=== PATIENT | male | born 1960 | race Caucasian/White ===

== ENCOUNTER 2018-02-06 09:11 | Observation (INO) ==
[2018-02-06] MEDS ORDERED: *HR* FentaNYL (PF) 100 MCG/2 ML VIAL IVP ONE (09:35)
[2018-02-06] MEDS ORDERED: 0.9 % Sodium Chloride 1,000 ML IVC ONE (09:35)
[2018-02-06] MEDS ORDERED: Ondansetron 4 MG/2 ML VIAL IVP ONE (09:35)
--- NOTE | 2018-02-06 09:50 | Emergency Department Note ---
Disposition Clinical Impression: Ureteral calculus, left Disposition: Admitted As Inpatient Condition: Fair Referrals: Norah Gardner CNP [Primary Care Provider] - Forms: ED Satisfaction Letter, Work/School Release Time of Disposition: 12:20 General Adult HPI - General Chief complaint: ED Abdominal Pain Stated complaint: "Kidney stone" Time Seen by Provider: 02/06/18 09:22 Source: patient Mode of arrival: ambulatory Limitations: no limitations Nursing Notes Reviewed: Yes Vital Signs Reviewed: Yes - History of Present Illness HPI Narrative: Nontoxic-appearing 57-year-old male presents for evaluation of persistent left flank pain, nausea, and vomiting. One half weeks ago, he visited the emergency department at [facility]. He was admitted after findings of a large left ureterolithiasis. He was placed on IV antibiotics at that time. A lithotripsy was performed. Several days later, his urologist attempted to place a ureteral stent however the patient states "my urologist said the kidney was too swollen to insert the stent". Several days later, his urologist was able to insert a left-sided ureteral stent. 3 days ago, the stent was removed by his urologist. The patient complains of ongoing and persistent left flank pain ever since. He denies any hematuria, dysuria, frequency, or urgency. He denies any fever or chills. He denies any abdominal pain. There is no radiation or migration of this pain. Onset (ago): day(s) Location: other (Left flank) Radiation: flank Pain Scale: 10 Quality: aching Consistency: constant Improves with: nothing Worsens with: nothing Associated symptoms: Reports: nausea/vomiting. Denies: fever/chills - Related Data Home Medications Medication Instructions Recorded Confirmed Ciprofloxacin HCl [Cipro] 500 mg PO HS 02/06/18 02/06/18 HYDROcodone/Acet 10/325 mg [[place] 1 tab PO Q4HR PRN 02/06/18 02/06/18 10-325 mg] Loratadine [Allergy Relief] 10 mg PO DAILY 02/06/18 02/06/18 Losartan [Cozaar] 50 mg PO DAILY 02/06/18 02/06/18 SUMAtriptan Succinate [Imitrex] 100 mg PO Q2H PRN 02/06/18 02/06/18 Tamsulosin HCl [Flomax] 0.4 mg PO DAILY 02/06/18 02/06/18 Allergies Allergy/AdvReac Type Severity Reaction Status Date / Time No Known Allergies Allergy Verified 02/06/18 09:20 All systems ED: reviewed and negative except as stated. Review of Systems: As Per HPI Constitutional: Denies: fever, chills, weakness, weight change Eyes: Denies: eye pain, eye discharge, vision change ENT ED: Denies: ear pain, throat pain, dental pain, hearing loss, epistaxis, congestion, dysphagia Cardiovascular: Denies: chest pain, palpitations, dyspnea on exertion, edema, syncope Respiratory: Denies: cough, dyspnea, wheezes, hemoptysis, stridor Gastrointestinal: Reports: as per HPI, nausea, vomiting. Denies: abdominal pain , diarrhea, constipation, hematemesis, melena, hematochezia Genitourinary: Denies: urgency, dysuria, frequency, hematuria Musculoskeletal: Reports: as per HPI, other (Left flank pain). Denies: back pain, neck pain, arthralgia, myalgia Integumentary: Denies: rash, abrasion, lesions Neurological: Denies: headache, weakness, numbness, paresthesias, confusion, abnormal gait, vertigo Psychiatric: Denies: anxiety, depression, suicidal thoughts, homicidal thoughts , auditory hallucinations, visual hallucinations Endocrine: Denies: fatigue Hematological/Lymphatic: Denies: easy bleeding, easy bruising Allergic/Immunologic: Denies: facial swelling, urticaria Past Medical History - Past Medical History Attestation: Yes The following information was validated with the patient. Source: patient, nursing notes reviewed Medical history: Reports: hypertension, kidney stones Psychiatric history: Reports: no psych history - Social History Smoking Status: Never smoker Smokeless Tobacco Status: No Alcohol use: Reports: none Drug use: Reports: none Physical Exam - General Limitations: no limitations General appearance: alert - Head Head exam: atraumatic, normocephalic, normal inspection - Eye Eye exam: Present: normal appearance, PERRL, EOMI. Absent: nystagmus - ENT ENT exam: mucous membranes moist - Neck Neck exam: Present: normal inspection, full ROM, trachea midline - Chest Chest inspection: Present: normal inspection, symmetric chest wall rise - Respiratory Respiratory exam: Present: normal lung sounds bilaterally. Absent: respiratory distress, wheezes, stridor, accessory muscle use, prolonged expiratory phase - Cardiovascular Cardiovascular exam: Present: regular rate, normal rhythm, normal heart sounds - Abdominal Exam Abdominal exam: Present: soft, Non-Tender, normal bowel sounds - Extremities Exam Extremities exam: Present: normal inspection, full ROM. Absent: tenderness, pedal edema - Back Exam Back exam: Present: full ROM, CVA tenderness (L). Absent: CVA tenderness (R) - Neurological Exam Neurological exam: Present: alert, oriented X3 - Psychiatric Psychiatric exam: Present: normal affect, normal mood - Skin Skin exam: Present: warm, dry, intact, normal color. Absent: rash Course Course Narrative: I spoke with Dr. Neely, urologist ammonium hydroxide operator. Dr. Neely states that the patient will require surgical intervention for stone extraction. He recommends the patient be placed on IV Rocephin, held nothing by mouth after midnight, and admitted to the hospitalist service. He states that he will see the patient tomorrow morning for likely stone extraction tomorrow. 1220: I spoke with Dr. Haddad of the Hospital services agreed to accept the patient for medical management pending urology evaluation. Vital Signs Temperature 97.6 F 02/06/18 09:17 Pulse Rate 85 02/06/18 09:17 Respiratory Rate 18 02/06/18 09:17 Blood Pressure 178/117 02/06/18 09:17 O2 Sat by Pulse Oximetry 99 02/06/18 09:17 Temperature 97.6 F 02/06/18 09:39 Pulse Rate 79 02/06/18 09:39 Respiratory Rate 18 02/06/18 09:39 Blood Pressure 158/102 02/06/18 09:39 O2 Sat by Pulse Oximetry 100 02/06/18 09:39 Oxygen Delivery Oxygen Delivery Room Air Medical Decision Making - Medical Records Medical records reviewed: Yes I reviewed the patient's medical records. - Lab Data Lab results reviewed: Yes I reviewed the patient's lab results. Lab results narrative: Lab Results 02/06/18 02/06/18 02/06/18 Range/Units 09:30 09:38 09:38 WBC 14.8 H (4.3-11.1) K/mcL RBC 5.04 (4.19-5.50) M/mcL Hgb 15.9 (12.9-16.9) g/dL Hct 44.2 (37.5-50.1) % MCV 87.7 (83.0-100.0) fL MCH 31.5 (28.0-33.3) pg MCHC 36.0 H (31.6-35.5) g/dL RDW 12.5 (11.5-14.5) % Plt Count 235 (140-400) K/mcL MPV 9.4 (9.4-12.4) fL Immature Gran % 0.4 (0-4) % Seg Neutrophils % 86.3 % Lymphocytes % 4.8 % Monocytes % 7.7 % Eosinophils % 0.5 % Basophils % 0.3 % Neutrophils # 12.8 H (1.6-8.9) K/mcL Lymphocytes # 0.7 (0.6-4.6) K/mcL Monocytes # 1.1 (0.0-1.3) K/mcL Eosinophils # 0.1 (0.0-0.6) K/mcL Basophils # 0.1 (0.0-0.2) K/mcL Sodium 133 L (136-145) mEq/L Potassium 4.1 (3.5-5.1) mEq/L Chloride 100 (98-107) mEq/L Carbon Dioxide 28 (23-29) mEq/L BUN 18 (6-20) mg/dL Creatinine 1.61 H (0.70-1.30) mg/dL Est GFR ( Amer) 54 L (> 60) Est GFR (Non-Af Amer) 45 L (> 60) BUN/Creatinine Ratio 11 (6-26) Glucose 118 H (70-105) mg/dL Calculated Osmolality 279 L (280-300) Lactic Acid (0.5-2.2) mmol/L Calcium 9.6 (8.6-10.3) mg/dL Urine Color Yellow (Yellow) Urine Clarity Clear (Clear) Urine pH 6.0 (5.0-8.0) pH Units Ur Specific [place] 1.014 (1.010-1.025) Urine Protein Negative (Neg-Trace) mg/dL Urine Glucose (UA) Normal (Normal) mg/dL Urine Ketones Negative (Negative) mg/dL Urine Blood Moderate H (Negative) Urine Nitrite Negative (Negative) Urine Bilirubin Negative (Negative) Urine Urobilinogen Normal (Normal) mg/dL Ur Leukocyte Esterase Negative (Negative) Urine Microscopic RBC 0-3 (0-3) per hpf Urine Microscopic WBC 0-3 (0-3) per hpf Ur Squamous Epith Cells None Seen (None-Few) per lpf Urine Bacteria None Seen (None-Few) per hpf Hyaline Casts None Seen (None-Few) per lpf Ur Culture Indicated? NO (NO) 02/06/18 Range/Units 09:50 WBC (4.3-11.1) K/mcL RBC (4.19-5.50) M/mcL Hgb (12.9-16.9) g/dL Hct (37.5-50.1) % MCV (83.0-100.0) fL MCH (28.0-33.3) pg MCHC (31.6-35.5) g/dL RDW (11.5-14.5) % Plt Count (140-400) K/mcL MPV (9.4-12.4) fL Immature Gran % (0-4) % Seg Neutrophils % % Lymphocytes % % Monocytes % % Eosinophils % % Basophils % % Neutrophils # (1.6-8.9) K/mcL Lymphocytes # (0.6-4.6) K/mcL Monocytes # (0.0-1.3) K/mcL Eosinophils # (0.0-0.6) K/mcL Basophils # (0.0-0.2) K/mcL Sodium (136-145) mEq/L Potassium (3.5-5.1) mEq/L Chloride (98-107) mEq/L Carbon Dioxide (23-29) mEq/L BUN (6-20) mg/dL Creatinine (0.70-1.30) mg/dL Est GFR ( Amer) (> 60) Est GFR (Non-Af Amer) (> 60) BUN/Creatinine Ratio (6-26) Glucose (70-105) mg/dL Calculated Osmolality (280-300) Lactic Acid 1.0 (0.5-2.2) mmol/L Calcium (8.6-10.3) mg/dL Urine Color (Yellow) Urine Clarity (Clear) Urine pH (5.0-8.0) pH Units Ur Specific [place] (1.010-1.025) Urine Protein (Neg-Trace) mg/dL Urine Glucose (UA) (Normal) mg/dL Urine Ketones (Negative) mg/dL Urine Blood (Negative) Urine Nitrite (Negative) Urine Bilirubin (Negative) Urine Urobilinogen (Normal) mg/dL Ur Leukocyte Esterase (Negative) Urine Microscopic RBC (0-3) per hpf Urine Microscopic WBC (0-3) per hpf Ur Squamous Epith Cells (None-Few) per lpf Urine Bacteria (None-Few) per hpf Hyaline Casts (None-Few) per lpf Ur Culture Indicated? (NO) Result diagrams: 02/06/18 09:38 02/06/18 09:38 Lab Results 02/06/18 02/06/18 02/06/18 Range/Units 09:30 09:38 09:38 WBC 14.8 H (4.3-11.1) K/mcL RBC 5.04 (4.19-5.50) M/mcL Hgb 15.9 (12.9-16.9) g/dL Hct 44.2 (37.5-50.1) % MCV 87.7 (83.0-100.0) fL MCH 31.5 (28.0-33.3) pg MCHC 36.0 H (31.6-35.5) g/dL RDW 12.5 (11.5-14.5) % Plt Count 235 (140-400) K/mcL MPV 9.4 (9.4-12.4) fL Immature Gran % 0.4 (0-4) % Seg Neutrophils % 86.3 % Lymphocytes % 4.8 % Monocytes % 7.7 % Eosinophils % 0.5 % Basophils % 0.3 % Neutrophils # 12.8 H (1.6-8.9) K/mcL Lymphocytes # 0.7 (0.6-4.6) K/mcL Monocytes # 1.1 (0.0-1.3) K/mcL Eosinophils # 0.1 (0.0-0.6) K/mcL Basophils # 0.1 (0.0-0.2) K/mcL Sodium 133 L (136-145) mEq/L Potassium 4.1 (3.5-5.1) mEq/L Chloride 100 (98-107) mEq/L Carbon Dioxide 28 (23-29) mEq/L BUN 18 (6-20) mg/dL Creatinine 1.61 H (0.70-1.30) mg/dL Est GFR ( Amer) 54 L (> 60) Est GFR (Non-Af Amer) 45 L (> 60) BUN/Creatinine Ratio 11 (6-26) Glucose 118 H (70-105) mg/dL Calculated Osmolality 279 L (280-300) Lactic Acid (0.5-2.2) mmol/L Calcium 9.6 (8.6-10.3) mg/dL Urine Color Yellow (Yellow) Urine Clarity Clear (Clear) Urine pH 6.0 (5.0-8.0) pH Units Ur Specific [place] 1.014 (1.010-1.025) Urine Protein Negative (Neg-Trace) mg/dL Urine Glucose (UA) Normal (Normal) mg/dL Urine Ketones Negative (Negative) mg/dL Urine Blood Moderate H (Negative) Urine Nitrite Negative (Negative) Urine Bilirubin Negative (Negative) Urine Urobilinogen Normal (Normal) mg/dL Ur Leukocyte Esterase Negative (Negative) Urine Microscopic RBC 0-3 (0-3) per hpf Urine Microscopic WBC 0-3 (0-3) per hpf Ur Squamous Epith Cells None Seen (None-Few) per lpf Urine Bacteria None Seen (None-Few) per hpf Hyaline Casts None Seen (None-Few) per lpf Ur Culture Indicated? NO (NO) 02/06/18 Range/Units 09:50 WBC (4.3-11.1) K/mcL RBC (4.19-5.50) M/mcL Hgb (12.9-16.9) g/dL Hct (37.5-50.1) % MCV (83.0-100.0) fL MCH (28.0-33.3) pg MCHC (31.6-35.5) g/dL RDW (11.5-14.5) % Plt Count (140-400) K/mcL MPV (9.4-12.4) fL Immature Gran % (0-4) % Seg Neutrophils % % Lymphocytes % % Monocytes % % Eosinophils % % Basophils % % Neutrophils # (1.6-8.9) K/mcL Lymphocytes # (0.6-4.6) K/mcL Monocytes # (0.0-1.3) K/mcL Eosinophils # (0.0-0.6) K/mcL Basophils # (0.0-0.2) K/mcL Sodium (136-145) mEq/L Potassium (3.5-5.1) mEq/L Chloride (98-107) mEq/L Carbon Dioxide (23-29) mEq/L BUN (6-20) mg/dL Creatinine (0.70-1.30) mg/dL Est GFR ( Amer) (> 60) Est GFR (Non-Af Amer) (> 60) BUN/Creatinine Ratio (6-26) Glucose (70-105) mg/dL Calculated Osmolality (280-300) Lactic Acid 1.0 (0.5-2.2) mmol/L Calcium (8.6-10.3) mg/dL Urine Color (Yellow) Urine Clarity (Clear) Urine pH (5.0-8.0) pH Units Ur Specific [place] (1.010-1.025) Urine Protein (Neg-Trace) mg/dL Urine Glucose (UA) (Normal) mg/dL Urine Ketones (Negative) mg/dL Urine Blood (Negative) Urine Nitrite (Negative) Urine Bilirubin (Negative) Urine Urobilinogen (Normal) mg/dL Ur Leukocyte Esterase (Negative) Urine Microscopic RBC (0-3) per hpf Urine Microscopic WBC (0-3) per hpf Ur Squamous Epith Cells (None-Few) per lpf Urine Bacteria (None-Few) per hpf Hyaline Casts (None-Few) per lpf Ur Culture Indicated? (NO) - Radiology Data Radiology results reviewed: Yes I reviewed the patient's radiology results. Abdomen/Pelvis CT 02/06/18 09:35 IMPRESSION: 1. Distal left ureteral stones the largest measuring up to 3 mm near the UVJ with mild upstream hydroureteronephrosis. Nonobstructing left renal calculi are also noted. There is focal 9 mm area of wall thickening at the left UVJ which may be related to the normal intramuscular portion of the UVJ, however focal mass in this region cannot be excluded. Consider follow-up with cystoscopy. 2. Cholelithiasis. D/ / 02/06/2018 11:21:25 Vandana Ortiz MD / yuliya Interpreting Provider: Vandana Ortiz MD
[2018-02-06 10:00] LABS: Bilirubin,Urine Negative (Negative); Blood,Urine Moderate (Negative); Clarity,Urine Clear (Clear); Color,Urine Yellow (Yellow); Glucose,Urine (UA) Normal (Normal); Ketones,Urine Negative (Negative); Leukocyte Esterase,Urine Negative (Negative); Nitrite,Urine Negative (Negative); Protein,Urine Negative (Neg-Trace); Specific Gravity,Urine 1.014 (1.010-1.025); Urobilinogen,Urine Normal (Normal)
[2018-02-06 10:04] LABS: Basophils # 0.1 K/mcL (0.0-0.2); Basophils % 0.3 %; Eosinophils # 0.1 K/mcL (0.0-0.6); Eosinophils % 0.5 %; Hematocrit 44.2 % (37.5-50.1); Hemoglobin 15.9 g/dL (12.9-16.9); Immature Granulocytes % 0.4 % (0-4); Lymphocytes # 0.7 K/mcL (0.6-4.6); Lymphocytes % 4.8 %; Mean Corpuscular Hemoglobin 31.5 pg (28.0-33.3); Mean Corpuscular Volume 87.7 fL (83.0-100.0); Mean Platelet Volume 9.4 fL (9.4-12.4); Monocytes # 1.1 K/mcL (0.0-1.3); Monocytes % 7.7 %; Neutrophils # 12.8 K/mcL (1.6-8.9); Platelet Count 235 K/mcL (140-400); Red Blood Count 5.04 M/mcL (4.19-5.50); Red Cell Distribution Width 12.5 % (11.5-14.5); Segmented Neutrophils % 86.3 %
[2018-02-06 10:05] LABS: Bacteria,Urine None Seen per hpf (None-Few); Hyaline Casts,Urine None Seen per lpf (None-Few); RBC,Urine 0-3 per hpf (0-3); Squamous Epithelial Cell,Urine None Seen per lpf (None-Few); WBC,Urine 0-3 per hpf (0-3)
[2018-02-06 10:22] LABS: Calcium 9.6 mg/dL (8.6-10.3); Potassium 4.1 mEq/L (3.5-5.1)
--- NOTE | 2018-02-06 11:45 | Emergency Department Note ---
Disposition Clinical Impression: Kidney stone Disposition: Admitted As Inpatient Forms: ED Satisfaction Letter, Work/School Release General Adult HPI - General Chief complaint: ED Abdominal Pain Stated complaint: "Kidney stone" Time Seen by Provider: 02/06/18 09:22 Source: patient Mode of arrival: ambulatory Limitations: no limitations - History of Present Illness Location: other (Left flank) Pain Scale: 10 Quality: aching Improves with: nothing Worsens with: nothing Associated symptoms: Reports: nausea/vomiting. Denies: fever/chills - Related Data Allergies Allergy/AdvReac Type Severity Reaction Status Date / Time No Known Allergies Allergy Verified 02/06/18 09:20 Constitutional: Denies: fever, chills, weakness, weight change Eyes: Denies: eye pain, eye discharge, vision change ENT ED: Denies: ear pain, throat pain, dental pain, hearing loss, epistaxis, congestion, dysphagia Cardiovascular: Denies: chest pain, palpitations, dyspnea on exertion, edema, syncope Respiratory: Denies: cough, dyspnea, wheezes, hemoptysis, stridor Gastrointestinal: Reports: as per HPI, nausea, vomiting. Denies: abdominal pain , diarrhea, constipation, hematemesis, melena, hematochezia Genitourinary: Denies: urgency, dysuria, frequency, hematuria Musculoskeletal: Reports: as per HPI, other (Left flank pain). Denies: back pain, neck pain, arthralgia, myalgia Integumentary: Denies: rash, abrasion, lesions Neurological: Denies: headache, weakness, numbness, paresthesias, confusion, abnormal gait, vertigo Psychiatric: Denies: anxiety, depression, suicidal thoughts, homicidal thoughts , auditory hallucinations, visual hallucinations Endocrine: Denies: fatigue Hematological/Lymphatic: Denies: easy bleeding, easy bruising Allergic/Immunologic: Denies: facial swelling, urticaria Past Medical History - Past Medical History Medical history: Reports: hypertension, kidney stones Psychiatric history: Reports: no psych history - Social History Smoking Status: Never smoker Smokeless Tobacco Status: No Alcohol use: Reports: none Drug use: Reports: none Physical Exam - General Limitations: no limitations General appearance: alert Course Vital Signs Temperature 97.6 F 02/06/18 09:17 Pulse Rate 85 02/06/18 09:17 Respiratory Rate 18 02/06/18 09:17 Blood Pressure 178/117 02/06/18 09:17 O2 Sat by Pulse Oximetry 99 02/06/18 09:17 Temperature 97.6 F 02/06/18 09:39 Pulse Rate 79 02/06/18 09:39 Respiratory Rate 18 02/06/18 09:39 Blood Pressure 158/102 02/06/18 09:39 O2 Sat by Pulse Oximetry 100 02/06/18 09:39 Oxygen Delivery Oxygen Delivery Room Air Medical Decision Making - Lab Data Result diagrams: 02/06/18 09:38 02/06/18 09:38 Lab Results 02/06/18 02/06/18 02/06/18 Range/Units 09:30 09:38 09:38 WBC 14.8 H (4.3-11.1) K/mcL RBC 5.04 (4.19-5.50) M/mcL Hgb 15.9 (12.9-16.9) g/dL Hct 44.2 (37.5-50.1) % MCV 87.7 (83.0-100.0) fL MCH 31.5 (28.0-33.3) pg MCHC 36.0 H (31.6-35.5) g/dL RDW 12.5 (11.5-14.5) % Plt Count 235 (140-400) K/mcL MPV 9.4 (9.4-12.4) fL Immature Gran % 0.4 (0-4) % Seg Neutrophils % 86.3 % Lymphocytes % 4.8 % Monocytes % 7.7 % Eosinophils % 0.5 % Basophils % 0.3 % Neutrophils # 12.8 H (1.6-8.9) K/mcL Lymphocytes # 0.7 (0.6-4.6) K/mcL Monocytes # 1.1 (0.0-1.3) K/mcL Eosinophils # 0.1 (0.0-0.6) K/mcL Basophils # 0.1 (0.0-0.2) K/mcL Sodium 133 L (136-145) mEq/L Potassium 4.1 (3.5-5.1) mEq/L Chloride 100 (98-107) mEq/L Carbon Dioxide 28 (23-29) mEq/L BUN 18 (6-20) mg/dL Creatinine 1.61 H (0.70-1.30) mg/dL Est GFR ( Amer) 54 L (> 60) Est GFR (Non-Af Amer) 45 L (> 60) BUN/Creatinine Ratio 11 (6-26) Glucose 118 H (70-105) mg/dL Calculated Osmolality 279 L (280-300) Lactic Acid (0.5-2.2) mmol/L Calcium 9.6 (8.6-10.3) mg/dL Urine Color Yellow (Yellow) Urine Clarity Clear (Clear) Urine pH 6.0 (5.0-8.0) pH Units Ur Specific [place] 1.014 (1.010-1.025) Urine Protein Negative (Neg-Trace) mg/dL Urine Glucose (UA) Normal (Normal) mg/dL Urine Ketones Negative (Negative) mg/dL Urine Blood Moderate H (Negative) Urine Nitrite Negative (Negative) Urine Bilirubin Negative (Negative) Urine Urobilinogen Normal (Normal) mg/dL Ur Leukocyte Esterase Negative (Negative) Urine Microscopic RBC 0-3 (0-3) per hpf Urine Microscopic WBC 0-3 (0-3) per hpf Ur Squamous Epith Cells None Seen (None-Few) per lpf Urine Bacteria None Seen (None-Few) per hpf Hyaline Casts None Seen (None-Few) per lpf Ur Culture Indicated? NO (NO) 02/06/18 Range/Units 09:50 WBC (4.3-11.1) K/mcL RBC (4.19-5.50) M/mcL Hgb (12.9-16.9) g/dL Hct (37.5-50.1) % MCV (83.0-100.0) fL MCH (28.0-33.3) pg MCHC (31.6-35.5) g/dL RDW (11.5-14.5) % Plt Count (140-400) K/mcL MPV (9.4-12.4) fL Immature Gran % (0-4) % Seg Neutrophils % % Lymphocytes % % Monocytes % % Eosinophils % % Basophils % % Neutrophils # (1.6-8.9) K/mcL Lymphocytes # (0.6-4.6) K/mcL Monocytes # (0.0-1.3) K/mcL Eosinophils # (0.0-0.6) K/mcL Basophils # (0.0-0.2) K/mcL Sodium (136-145) mEq/L Potassium (3.5-5.1) mEq/L Chloride (98-107) mEq/L Carbon Dioxide (23-29) mEq/L BUN (6-20) mg/dL Creatinine (0.70-1.30) mg/dL Est GFR ( Amer) (> 60) Est GFR (Non-Af Amer) (> 60) BUN/Creatinine Ratio (6-26) Glucose (70-105) mg/dL Calculated Osmolality (280-300) Lactic Acid 1.0 (0.5-2.2) mmol/L Calcium (8.6-10.3) mg/dL Urine Color (Yellow) Urine Clarity (Clear) Urine pH (5.0-8.0) pH Units Ur Specific [place] (1.010-1.025) Urine Protein (Neg-Trace) mg/dL Urine Glucose (UA) (Normal) mg/dL Urine Ketones (Negative) mg/dL Urine Blood (Negative) Urine Nitrite (Negative) Urine Bilirubin (Negative) Urine Urobilinogen (Normal) mg/dL Ur Leukocyte Esterase (Negative) Urine Microscopic RBC (0-3) per hpf Urine Microscopic WBC (0-3) per hpf Ur Squamous Epith Cells (None-Few) per lpf Urine Bacteria (None-Few) per hpf Hyaline Casts (None-Few) per lpf Ur Culture Indicated? (NO) Attestation Statement - Attestation Attestation: I examined this patient and my medical decision-making was reviewed with the PA. I agree with the documented findings, disposition and treatment plan as described except to the extent set forth below. 57 year old male presents to the ED with complaints of kdiney stone pain and has [facility] and has been having repeated lithortripsy in addition to a recent stent placement and removal three days ago. PAtinet has an elevated CRN now and a WBC of 14 with a 3mm stone in left side UVJ in addition to a new focal mass. WE will consult with our urologist for assistance with dispo as radiologist is recommending a cystoscopy.
[2018-02-06] MEDS ORDERED: cefTRIAXone 1,000 MG in 0.9 % Sodium Chloride Mini Bag 100 ML IVPB ONE (11:56)
--- NOTE | 2018-02-06 12:10 | Urology - Consult Note ---
Date of Encounter: 02/06/18 Time of Encounter: 12:05 - Assessment and Plan (1) Ureteral calculus, left Current Visit: Yes Status: Acute Assessment and plan: Patient is a 57 year old male who presents with multiple obstructing distal left ureteral stones and left renal stones, confirmed by CT abdomen and pelvis. Patient's vital signs are stable, and he is afebrile. WBC count 14.8. Patient was counseled on risks and benefits of surgery. Patient and his verbalize understanding, consent has been signed, and he is prepared to undergo a left ureteroscopic stone extraction with holmium laser, basket retrieval, and left ureteral stent placement. Patient will remain NPO and be admitted to hospitalist services. Urology CN:HPI Consult date: 02/06/18 Reason for consult Urology: Other (left ureteral stone) History of present illness: Patient is a 57 year old male who presents with left flank pain and history of left renal stones. [place] [facility] one [place] ago for left renal stones. Patient underwent ESWL and left ureteral stent placement in two separate procedures 9 days ago. Patient states pain has persisted since stent placement and acutely worsened overnight. Patient has not eaten or drank anything since 2200 last night. Patient admits to gross hematuria , left flank pain, urinary hesitancy. Patient denies fever, chills, dysuria. Patient reports this is his first renal stone, but he has a positive family history of renal stones through his brother that sees Dr. Laboy. Patient attempted to [place] [facility] told he is out of town. Patient underwent CT scan confirming distal ureteral stones. Past Med Surg Social Fam HX - Past Medical History Medical history: hypertension, kidney stones Psychiatric history: no psych history - Social History Smoking Status: Never smoker Smokeless Tobacco Status: No Alcohol use: none Drug use: none Medications and Allergies 3 Allergy/AdvReac Type Severity Reaction Status Date / Time No Known Allergies Allergy Verified 02/06/18 09:20 Review of Systems - Constitutional no chills, no fatigue, no fever(s) - EENT Nose, mouth and throat: no dizziness, no headache(s) - Cardiovascular no chest pain, no diaphoresis, no dyspnea - Respiratory no cough, no dyspnea - Gastrointestinal abdominal pain, nausea, no vomiting - Genitourinary hematuria, urinary hesitancy, no change in urinary stream, no dysuria, no genital pain, no urinary frequency, no urinary urgency - Musculoskeletal back pain, no muscle weakness, no numbness - Integumentary no erythema, no rash, no swelling - Neurological no confusion, no sensory deficit, no syncope, no weakness - Psychiatric no anxiety, no confusion Exam Initial Vital Signs Temp Pulse Resp BP Pulse Ox 97.6 F 85 18 178/117 99 02/06/18 09:17 02/06/18 09:17 02/06/18 09:17 02/06/18 09:17 02/06/18 09:17 Urology Results - Labs 02/06/18 09:38 02/06/18 09:38 Abnormal lab results WBC 14.8 K/mcL (4.3-11.1) H 02/06/18 09:38 MCHC 36.0 g/dL (31.6-35.5) H 02/06/18 09:38 Neutrophils # 12.8 K/mcL (1.6-8.9) H 02/06/18 09:38 Sodium 133 mEq/L (136-145) L 02/06/18 09:38 Creatinine 1.61 mg/dL (0.70-1.30) H 02/06/18 09:38 Est GFR ( Amer) 54 (> 60) L 02/06/18 09:38 Est GFR (Non-Af Amer) 45 (> 60) L 02/06/18 09:38 Glucose 118 mg/dL (70-105) H 02/06/18 09:38 Calculated Osmolality 279 (280-300) L 02/06/18 09:38 Urine Blood Moderate (Negative) H 02/06/18 09:30 Diabetes panel 02/06/18 Range/Units 09:38 Sodium 133 L (136-145) mEq/L Potassium 4.1 (3.5-5.1) mEq/L Chloride 100 (98-107) mEq/L Carbon Dioxide 28 (23-29) mEq/L BUN 18 (6-20) mg/dL Creatinine 1.61 H (0.70-1.30) mg/dL Glucose 118 H (70-105) mg/dL Calcium 9.6 (8.6-10.3) mg/dL Calcium panel 02/06/18 Range/Units 09:38 Calcium 9.6 (8.6-10.3) mg/dL Pituitary panel 02/06/18 Range/Units 09:38 Sodium 133 L (136-145) mEq/L Potassium 4.1 (3.5-5.1) mEq/L Chloride 100 (98-107) mEq/L Carbon Dioxide 28 (23-29) mEq/L BUN 18 (6-20) mg/dL Creatinine 1.61 H (0.70-1.30) mg/dL Glucose 118 H (70-105) mg/dL Calcium 9.6 (8.6-10.3) mg/dL Adrenal panel 02/06/18 Range/Units 09:38 Sodium 133 L (136-145) mEq/L Potassium 4.1 (3.5-5.1) mEq/L Chloride 100 (98-107) mEq/L Carbon Dioxide 28 (23-29) mEq/L BUN 18 (6-20) mg/dL Creatinine 1.61 H (0.70-1.30) mg/dL Glucose 118 H (70-105) mg/dL Calcium 9.6 (8.6-10.3) mg/dL All other labs normal. - Imaging CT scan - abdomen: report reviewed, image reviewed CT scan - pelvis: report reviewed, image reviewed Consult Discharge Plan - Plan Referrals: Norah Gardner CNP [Primary Care Provider] -
--- NOTE | 2018-02-06 13:56 | Internal Med History&Physical ---
Date of Encounter: 02/06/18 Time of Encounter: 13:53 Internal Medicine - H&P: HPI Chief complaint: Left sided pain Admitted From: Home History of present illness: Mr. Lu is a 57 year old male with PMH hypertension and recurrent kidney stones presented to [facility] on 02/06/2018 with complaints of left flank pain. He was found to have obstructing ureteral stone and was placed in observation status for further workup and treatment and urology consultation. Information obtained from chart review and patient report. Patient says he has been dealing with kidney stones for the past 2-3 weeks. Was seen at outside hospital where he had lithotripsy done but now with recurrent and worsening left flank plain. Has nausea as well. IV fentanyl and ED helped with pain. He does have some left CVA tenderness. No dysuria. Past Med Surg Social Fam HX - Past Medical History Medical history: hypertension, kidney stones Psychiatric history: no psych history - Past Surgical History Surgical History: non-contributory - Social History Smoking Status: Never smoker Smokeless Tobacco Status: No Alcohol use: none Drug use: none - Additional Family History Additional family history: Family history reviewed and noncontributory per patient Internal Medicine - H&P: Meds Ciprofloxacin HCl [Cipro] 500 mg PO HS 02/06/18 [History] HYDROcodone/Acet 10/325 mg [[place] 10-325 mg] 1 tab PO Q4HR PRN 02/06/18 [History ] Loratadine [Allergy Relief] 10 mg PO DAILY 02/06/18 [History] Losartan [Cozaar] 50 mg PO DAILY 02/06/18 [History] SUMAtriptan Succinate [Imitrex] 100 mg PO Q2H PRN 02/06/18 [History] Tamsulosin HCl [Flomax] 0.4 mg PO DAILY 02/06/18 [History] 3 Allergy/AdvReac Type Severity Reaction Status Date / Time No Known Allergies Allergy Verified 02/06/18 09:20 All Systems PM: A 10-system review of systems was performed and is negative for pertinent findings except as documented above in the HPI. - Constitutional Constitutional: no chills, no fever(s), no night sweats - EENT Eyes: no change in vision, no discharge, no pain, no photophobia Ears: no ear discharge, no ear pain, no tinnitus Nose, mouth and throat: no dysphagia, no nasal discharge, no neck pain, no sore throat - Cardiovascular Cardiovascular ROS IM: no chest pain, no diaphoresis, no dyspnea, no lightheadedness, no palpitations, no syncope - Respiratory Respiratory: no cough, no dyspnea, no wheezing, no excessive phlegm production - Gastrointestinal Gastrointestinal: no abdominal pain, no diarrhea, no hematemesis, no hematochezia, no melena, no nausea, no vomiting - Genitourinary Genitourinary ROS male: flank pain - Musculoskeletal Musculoskeletal ROS IM: no numbness, no tingling - Integumentary Integumentary IM: no rash, no unusual bruising - Neurological Neurological ROS: no confusion, no convulsions, no focal weakness, no numbness, no tingling, no tremor(s) - Hematologic/Lymphatic Hematologic/Lymphatic: no easy bruising - Constitutional Vitals: Temp Pulse Resp BP Pulse Ox 97.6 F 80 16 137/90 100 02/06/18 09:39 02/06/18 13:08 02/06/18 13:08 02/06/18 13:08 02/06/18 13:08 General appearance: Present: A&O X 3, no acute distress Exam: . - Head Head exam: Present: atraumatic, normocephalic - Eye Eye exam: Present: PERRL, conjuntiva pink, sclera anicteric Pupils: Present: PERRL - Neck Neck exam general surgery: Present: supple, trachea midline. Absent: lymphadenopathy - Respiratory Respiratory exam: Present: CTAB. Absent: accessory muscle use, rales, rhonchi, wheezes - Cardiovascular Cardiovascular exam: Present: RRR, +S1, +S2. Absent: diastolic murmur, gallop, rubs, systolic murmur - GI/Abdominal GI/Abdominal exam: Present: normal bowel sounds, soft, no peritoneal signs. Absent: distended, tenderness - Additional comments: + Left CVA tenderness - Extremities Exam Extremities exam: Present: warm, radial pulses palpable and symmetrical. Absent : calf tenderness, cyanotic, pedal edema - Neurological Exam Neurological exam: Present: CN II-XII intact, oriented X3, no focal deficits. Absent: pronater drift, facial droop, speech deficit - Skin Skin exam: Present: dry, intact Internal Med - H&P Results - Labs CBC & Chem 7: 02/06/18 09:38 02/06/18 09:38 - Assessment and plan (1) Ureteral calculus, left Current Visit: Yes Status: Acute Assessment and plan: presented with left sided flank pain. ABD CT showed left ureteral stones near the UVJ with upstream hydroureternephrosis. Evaluated by urology in ED who is planning left ureteroscopic stone extraction with ureteral stent placement. Keep NPO, cont IV fluids, IV ceftriaxone and pain control. (2) Acute on chronic kidney failure Current Visit: Yes Status: Acute Assessment and plan: Cr 1.6 on arrival which appears to be worse than baseline. In the setting of obstructive renal calculi with combined use of ARB. Holding home ARB. Continue IV fluids. Avoid nephrotoxic agents as possible. Monitor repeat renal function. Qualifiers: Chronic kidney disease stage: stage 3 (moderate) Qualified Code(s): N17.9 - Acute kidney failure, unspecified; N18.3 - Chronic kidney disease, stage 3 ( moderate) (3) HTN (hypertension) Current Visit: Yes Status: Acute Assessment and plan: per hx. Holding home ARB with acute on chronic renal failure. BP mildly elevated which is possibly secondary to acute pain. Add PRN hydralazine. Monitor BP and titrate PRN Qualifiers: Hypertension type: essential hypertension Qualified Code(s): I10 - Essential (primary) hypertension (4) DVT prophylaxis Current Visit: Yes Status: Acute Assessment and plan: SCD - Time Spent With Patient Total time spent is greater than 50% in coordination of care (as documented) at patient's floor/unit and/or counseling patient:
[2018-02-06] MEDS ORDERED: Naloxone 0.4 MG/ML INJ IVP PRN ×2 (14:04→18:33)
[2018-02-06] MEDS ORDERED: 0.9 % Sodium Chloride 1,000 ML IVC SCH ×2 (14:15→18:33)
--- NOTE | 2018-02-06 14:22 | Anesthesia Evaluation PreOp ---
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: Denies Any Significant HX Other Medical History: Renal (ACUTE ON CHRONIC RENAL FAILURE, ESWL, STENT REMOVED, MULTIPLE LEFT URETERIC STONES, N/V SINCE THIS AM) Anesthesia History: No Prior Anesthetic Complications, Past Anesthesia Alcohol Use: none Drug use: none Medications and Allergies Ciprofloxacin HCl [Cipro] 500 mg PO HS 02/06/18 [History] HYDROcodone/Acet 10/325 mg [[place] 10-325 mg] 1 tab PO Q4HR PRN 02/06/18 [History ] Loratadine [Allergy Relief] 10 mg PO DAILY 02/06/18 [History] Losartan [Cozaar] 50 mg PO DAILY 02/06/18 [History] SUMAtriptan Succinate [Imitrex] 100 mg PO Q2H PRN 02/06/18 [History] Tamsulosin HCl [Flomax] 0.4 mg PO DAILY 02/06/18 [History] 3 Allergy/AdvReac Type Severity Reaction Status Date / Time No Known Allergies Allergy Verified 02/06/18 09:20 - Meds/Allergy Pre-op Review Medications Reviewed: Yes Allergies Reviewed: Yes Beta Blockers on Current Med List: No Anesthesia Results - Labs 02/06/18 09:38 02/06/18 09:38 Est GFR (Non-Af Amer) 45 (> 60) L 02/06/18 09:38 Lactic Acid 1.0 mmol/L (0.5-2.2) 02/06/18 09:50 Calcium 9.6 mg/dL (8.6-10.3) 02/06/18 09:38 Anesthesia Exam Vital Signs/O2 Sat, Most Current Temp Pulse Resp BP Pulse Ox 97.5 F L 80 18 147/99 97 02/06/18 13:55 02/06/18 13:55 02/06/18 13:55 02/06/18 13:55 02/06/18 13:55 Height 1.7 m Weight 84.822 kg BMI 29 NPO (# of Hours): 8 - HEENT Mallampati: III Teeth: Normal Oral Opening: Greater than 3 - Cardiac Rhythm: Regular - Pulmonary Breath Sounds: bilateral Clear Respiratory Effort: Symmetrical Anesthesia Assess/Plan ASA Score: 2, E Modified Ricky Scale for Level of Consciousness: Cooperative, oriented, and tranquil Anesthetic Plan: General Monitoring Plan: Standard Monitors Recovery Plan: PACU Anes Supervising Prov Stmt: Patient informed and consented. Risks, benefits, and alternatives discussed. Patient wishes to proceed.
[2018-02-06] MEDS ORDERED: Ondansetron 4 MG/2 ML VIAL IVP PRN ×2 (14:43→18:33)
[2018-02-06] MEDS ORDERED: Ondansetron 4 MG/2 ML VIAL ONE ×2 (14:45→16:18)
[2018-02-06] MEDS ORDERED: *HR* OxyCODONE Immed Rel 5 MG TABLET PO SCH (16:00)
[2018-02-06] MEDS ORDERED: Lidocaine -MPF 4% 5 ML AMPUL ONE (16:18)
[2018-02-06] MEDS ORDERED: *HR* FentaNYL (PF) 100 MCG/2 ML VIAL ONE ×2 (16:18→17:12)
[2018-02-06] MEDS ORDERED: *HR* Midazolam HCl 2 MG/2 ML VIAL ONE (16:18)
[2018-02-06] MEDS ORDERED: *HR* Propofol 200 MG/20 ML VIAL IVP ONE (16:18)
[2018-02-06] MEDS ORDERED: Dexamethasone 4 MG/ML VIAL ONE (16:18)
[2018-02-06] MEDS ORDERED: Lidocaine -MPF 2% 2 ML VIAL ONE (16:18)
[2018-02-06] MEDS ORDERED: *HR* Succinylcholine 200 MG/10 ML VIAL IVP ONE (16:18)
[2018-02-06] MEDS ORDERED: Metoclopramide 10 MG/2 ML VIAL ONE (16:19)
[2018-02-06] MEDS ORDERED: Famotidine 20 MG/2 ML VIAL ONE (16:24)
[2018-02-06] MEDS ORDERED: Acetaminophen IV 1,000 MG/100 ML INFUS..BTL ONE (16:24)
[2018-02-06] MEDS ORDERED: *HR* HYDROmorphone (PF) 1 MG/ML SYRINGE IVP PRN (16:31)
[2018-02-06] MEDS ORDERED: *HR* Promethazine 25 MG/ML VIAL IVP PRN (16:31)
[2018-02-06] MEDS ORDERED: Isovue-300 50 ML VIAL IVP ONE (16:37)
--- NOTE | 2018-02-06 16:48 | Operative Note ---
Date of procedure: 02/06/18 Pre-op diagnosis: left distal ureteral stones Post-op diagnosis: same Procedure: left ureteroscopic stone extraction left JJ stent. Anesthesia: GETA Surgeon: Jean Pierre Neely Was there an program services assistant present: No Estimated blood loss (cc): 0 Specimen: stone Condition: stable Disposition: PACU Procedure in Detail: PROCEDURE IN DETAIL: Patient was taken back to the operating room, positioned supine on the operating table. Anesthesia was applied without complication. They were moved into dorsal lithotomy. Careful attention was maintained to cushion all pressure points for patient's safety. They were prepped and draped in sterile fashion. Time-out was performed with the proper patient and procedure. A 21-Lithuanian rigid cystoscope was inserted into the bladder without difficulty. Systematic examination of bladder revealed no abnormalities. The left ureteral orifice was cannulated using a 5-Lithuanian ureteral Catheter and a zip wire was placed through the 5-Lithuanian and confirmed in the renal pelvis with fluoroscopy. Significant debris filled urine rushed from the ureteral orifice after the zip wire was passed. A semi-rigid ureteroscope was carefully inserted into the bladder and guided into the ureteral oriface. At that point , 2 stones were encountered and I basketed each out of the ureter with a 1.9 tipless basket. All stone in the ureter was removed. A 4.8 x 26 ureteral stent was placed over the zip wire under fluoroscopy without complication. The bladder was drained along with the stone fragments. They were collected and sent for stone analysis. The string was left attached to the stent and secured to the patient for easy removal in approximately 72 hours. I elected not to proceed into his renal pelvis to remove the nonobstructing 3 mm stone because of his acute illness.
[2018-02-06] MEDS ORDERED: Scopolamine Patch 1.5 MG PATCH.TD72 ONE (17:06)
--- NOTE | 2018-02-06 18:27 | Anesthesia Evaluation Post Op ---
Date of Encounter: 02/06/18 Time of Encounter: 18:00 - Vital Signs Vital Signs: Vital Signs Temp Pulse Resp BP Pulse Ox 02/06/18 18:06 82 14 137/86 98 02/06/18 17:50 99.4 F 84 14 141/90 97 02/06/18 17:40 81 14 136/85 96 02/06/18 17:30 74 16 113/80 95 02/06/18 17:20 99.6 F 83 16 108/73 93 02/06/18 13:55 97.5 F L 80 18 147/99 97 02/06/18 13:08 80 16 137/90 100 02/06/18 12:39 78 15 152/109 98 02/06/18 09:39 97.6 F 79 18 158/102 100 02/06/18 09:17 97.6 F 85 18 178/117 99 Intake and Output 02/06/18 02/06/18 02/06/18 07:59 15:59 23:59 Intake Total 1100 / 1100 Output Total 0 / 0 5 / 5 Balance 1100 / 1100 -5 / -5 Intake: IV Fluids 1100 / 1100 0.9 % Sodium Chloride 1,000 ML 1000 / 1000 @ 999 mls/hr IVC .Q1H1M ONE Rx# :[id number] Rocephin 1,000 MG In 0.9 % 100 / 100 Sodium Chloride (Mini-Bag +) 100 ML @ 200 mls/hr IVPB ONCE ONE Rx#:[id number] Output: Urine 0 / 0 Estimated Blood Loss 5 / 5 Other: Meal NPO DINNER Weight 84.368 kg Patient Weight 02/06/18 23:59 Weight 84.368 kg - Lungs Lungs: Clear Ascult./Percussion - Airway Airway: Non-obstructed - Cardiovascular Regular Rate - Mental Status Mental Status: Alert & Oriented, Answers Appropriately - Pain Pain Scale: 2 Pain Scale used: Garcia-Recinos (Faces) - Nausea Vomiting Nausea Vomiting: Present (improved from Pre-OP baseline) - Hydration Hydration: Ice chips, Has not voided - Discharge PostOp Status: Transfer Patient to floor Anes Supervising Prov Stmt: Pt seen/evaluated, VSS And has met criteria for discharge to floor. - MD Alex
[2018-02-06] MEDS: *HR* OxyCODONE Immed Rel 5 MG TABLET PO SCH (20:25)
[2018-02-07] MEDS: *HR* OxyCODONE Immed Rel 5 MG TABLET PO SCH ×2 (01:36→05:36)
[2018-02-07 05:10] LABS: Hematocrit 40.1 % (37.5-50.1); Mean Corpuscular HGB Conc 35.4 g/dL (31.6-35.5); Mean Corpuscular Hemoglobin 31.3 pg (28.0-33.3); Mean Corpuscular Volume 88.3 fL (83.0-100.0); Mean Platelet Volume 9.5 fL (9.4-12.4); Platelet Count 210 K/mcL (140-400); Red Blood Count 4.54 M/mcL (4.19-5.50); Red Cell Distribution Width 12.6 % (11.5-14.5)
[2018-02-07 05:13] LABS: Hemoglobin 14.2 g/dL (12.9-16.9)
[2018-02-07 05:22] LABS: BUN/Creatinine Ratio 13 (6-26); Blood Urea Nitrogen 18 mg/dL (6-20); Calcium 8.8 mg/dL (8.6-10.3); Carbon Dioxide 24 mEq/L (23-29); Chloride 109 mEq/L (98-107); Glucose 127 mg/dL (70-105); Osmolality,Calculated 291 (280-300); Potassium 4.2 mEq/L (3.5-5.1); Sodium 139 mEq/L (136-145); eGFR For Non-African Americans 51 (> 60)
[2018-02-07] MEDS ORDERED: *HR* OxyCODONE Immed Rel 5 MG TABLET PO PRN (07:08)
--- NOTE | 2018-02-07 08:17 | Urology Progress Note ---
Date of Encounter: 02/07/18 Time of Encounter: 08:14 - Assessment and Plan (1) Ureteral calculus, left Current Visit: Yes Status: Resolved Assessment and plan: Patient feels much better. Labs have improved. Creatinine still mildly elevated. Should resolve with time. I instructed patient that he should leave the stent in until at least Friday. Expect stent discomfort including urgency, frequency, burning on urination. He can either remove the stent at home by pulling on the string until the entire stent is removed or contact our office to come in for removal. Office contact information provided. I recommend 7 days of antibiotics because of questionable UTI. Bactrim or Keflex would be appropriate Okay to discharge per urology standpoint Progress Note Subjective: feels better Narrative: pt states no pain. nausea resolved. Objective Initial Vital Signs Temp Pulse Resp BP Pulse Ox 97.6 F 85 18 178/117 99 02/06/18 09:17 02/06/18 09:17 02/06/18 09:17 02/06/18 09:17 02/06/18 09:17 - General physical appearance Present: no distress - Labs 02/07/18 04:46 02/07/18 04:46 Diabetes panel 02/07/18 Range/Units 04:46 Sodium 139 (136-145) mEq/L Potassium 4.2 (3.5-5.1) mEq/L Chloride 109 H (98-107) mEq/L Carbon Dioxide 24 (23-29) mEq/L BUN 18 (6-20) mg/dL Creatinine 1.43 H (0.70-1.30) mg/dL Glucose 127 H (70-105) mg/dL Calcium 8.8 (8.6-10.3) mg/dL Calcium panel 02/07/18 Range/Units 04:46 Calcium 8.8 (8.6-10.3) mg/dL Pituitary panel 02/07/18 Range/Units 04:46 Sodium 139 (136-145) mEq/L Potassium 4.2 (3.5-5.1) mEq/L Chloride 109 H (98-107) mEq/L Carbon Dioxide 24 (23-29) mEq/L BUN 18 (6-20) mg/dL Creatinine 1.43 H (0.70-1.30) mg/dL Glucose 127 H (70-105) mg/dL Calcium 8.8 (8.6-10.3) mg/dL Adrenal panel 02/07/18 Range/Units 04:46 Sodium 139 (136-145) mEq/L Potassium 4.2 (3.5-5.1) mEq/L Chloride 109 H (98-107) mEq/L Carbon Dioxide 24 (23-29) mEq/L BUN 18 (6-20) mg/dL Creatinine 1.43 H (0.70-1.30) mg/dL Glucose 127 H (70-105) mg/dL Calcium 8.8 (8.6-10.3) mg/dL Consult Discharge Plan - Plan Referrals: Norah Gardner CNP [Primary Care Provider] - Jean Pierre Neely MD [Partnered Physician] -
--- NOTE | 2018-02-07 08:34 | Discharge Summary ---
- NOTES TO OUTPATIENT PROVIDER Notes to Outpatient Provider: elevatedrenal fx 2/2 lt ureteral calculi; improving s/p stent. f/u renal labs Orders not resulted at time of discharge: Pending orders 02/06/18 17:24 Surgical Pathology [PTH] Stat Date of Encounter: 02/07/18 Time of Encounter: 08:32 - Discharge Diagnosis (1) Ureteral calculus, left Priority: Primary Status: Resolved (2) HTN (hypertension) Priority: Secondary Status: Acute Qualifiers: Hypertension type: essential hypertension Qualified Code(s): I10 - Essential (primary) hypertension (3) Acute on chronic kidney failure Priority: Secondary Status: Acute Assessment and Plan: improving s/p renal stent; remains elevated but i expect it to improve and return to baseline fx. Qualifiers: Chronic kidney disease stage: stage 3 (moderate) Qualified Code(s): N17.9 - Acute kidney failure, unspecified; N18.3 - Chronic kidney disease, stage 3 ( moderate) (4) DVT prophylaxis Priority: Secondary Status: Acute Hospital course: Mr. Lu is a 57 year old male with left ureteral calculi. Basket retrieval completed with removal of ureteral calculus. Ureteral stent in place. To have removed at urology office during follow-up. Uneventful hospital course. Patient progressing back to baseline. WBC is down trending on day of discharge. Hemodynamically stable and without fevers. He will be sent home with a 7 day course of Keflex. Denies any further questions and verbalized understanding of plan of care. Instructed to return to the ED she began to develop fever, chills, nausea, vomiting, back pain, urinary difficulty. Patient verbalized understanding. Discharge discussed with: patient, nurse - Time Spent with Patient Total time spent providing and/or coordinating discharge services: Less than 30 minutes - Discharge Medications Prescriptions: cephALEXin [Keflex] 500 mg PO BID 7 Days #14 capsule Home Medications: HYDROcodone/Acet 10/325 mg [[place] 10-325 mg] 1 tab PO Q4HR PRN 02/06/18 [History ] Loratadine [Allergy Relief] 10 mg PO DAILY 02/06/18 [History] Losartan [Cozaar] 50 mg PO DAILY 02/06/18 [History] SUMAtriptan Succinate [Imitrex] 100 mg PO Q2H PRN 02/06/18 [History] Tamsulosin HCl [Flomax] 0.4 mg PO DAILY 02/06/18 [History] cephALEXin [Keflex] 500 mg PO BID 7 Days #14 capsule 02/07/18 [Rx] Allergies/Adverse Reactions: 3 Allergy/AdvReac Type Severity Reaction Status Date / Time No Known Allergies Allergy Verified 02/06/18 09:20 Date of admission: 02/06/18 12:27 Primary care physician: Norah Gardner CNP Discharging clinician: Jian Chan Anticipated date of discharge: 02/07/18 - Constitutional Vitals: Temp Pulse Resp BP Pulse Ox 98.8 F 87 16 132/80 97 02/07/18 07:24 02/07/18 07:24 02/07/18 07:24 02/07/18 07:24 02/07/18 07:24 General appearance: Present: A&O X 3, no acute distress Exam: . - Head Head exam: Present: atraumatic, normocephalic - Eye Eye exam: Present: PERRL, conjuntiva pink, sclera anicteric Pupils: Present: PERRL - Neck Neck exam general surgery: Present: supple, trachea midline. Absent: lymphadenopathy - Respiratory Respiratory exam: Present: CTAB. Absent: accessory muscle use, rales, rhonchi, wheezes - Cardiovascular Cardiovascular exam: Present: RRR, +S1, +S2. Absent: diastolic murmur, gallop, rubs, systolic murmur - GI/Abdominal GI/Abdominal exam: Present: normal bowel sounds, soft, no peritoneal signs. Absent: distended, tenderness - Extremities Exam Extremities exam: Present: warm, radial pulses palpable and symmetrical. Absent : calf tenderness, cyanotic, pedal edema - Neurological Exam Neurological exam: Present: CN II-XII intact, oriented X3, no focal deficits. Absent: pronater drift, facial droop, speech deficit - Skin Skin exam: Present: dry, intact - Patient Status Disposition: Home, Self-Care Condition: Fair Functional capacity at discharge: independent ambulation Overall status at discharge: patient is progressing back to baseline - Discharge Instructions Instructions: Chronic Hypertension (DC) Follow Up With: Norah Gardner CNP [Primary Care Provider] - Jean Pierre Neely MD [Partnered Physician] - - Diet and Activity Activity: increase activity as tolerated, resume usual activities as tolerated Diet: advance to your usual diet
[2018-02-07] MEDS ORDERED: cefTRIAXone 1,000 MG in Water for inj. (sterile) 20 ML 10 ML IVP SCH (09:00)
[2018-02-07 10:42] VITALS: BP 131/86
[2018-02-11 10:15] LABS: Calculi Mass 7 mg
== END 2018-02-07 12:49 | disposition home or self-care (01) ==
LOC: EMEROOARM 09:11 → 3ANU 09:11
PROVIDERS: ADMIT Internal Medicine; ATTEND Internal Medicine

== ENCOUNTER 2018-05-18 04:36 | Observation (INO) ==
--- NOTE | 2018-05-18 04:55 | Emergency Department Note ---
Disposition Clinical Impression: Left flank pain, Hydroureter, Hydronephrosis, Left ureteral calculus Disposition: Admitted As Inpatient Condition: Fair Time of Disposition: 06:13 General Adult HPI - General Stated complaint: left side flank pain Time Seen by Provider: 05/18/18 04:44 - History of Present Illness HPI Narrative: 57-year-old male presents from home for evaluation of left-sided flank pain. He had some mild aching throughout the day yesterday. 4 hours prior to arrival, he was awoken with left-sided sharp stabbing pain that started in his back and radiated around his flank into his left scrotum. Associated with nausea. Somewhat improved with his prescribed oxycodone 5/325 which was left over from his previous kidney stone. Symptoms are similar to previous any stones. He notes that he was admitted previously for an obstructing stone on that side with stent placed. He was told by his urologist, Dr. Neely, that there was another stone that likely will be coming down in the near future. PMH: CKD, hypertension, history of recurrent nephrolithiasis including obstructing stones necessitating stent placement ROS: Positive: As above Negative: Fever, chills, vomiting, chest pains, palpitations, trauma, catarino hematuria, diarrhea, constipation, other abdominal pain - Related Data Home Medications Medication Instructions Recorded Confirmed RX: HYDROcodone/Acet 10/325 mg 1 tab PO Q4HR PRN 02/06/18 02/06/18 [Olive 10-325 mg] RX: Loratadine [Allergy Relief] 10 mg PO DAILY 02/06/18 02/06/18 RX: Losartan [Cozaar] 50 mg PO DAILY 02/06/18 02/06/18 RX: SUMAtriptan Succinate [Imitrex] 100 mg PO Q2H PRN 02/06/18 02/06/18 RX: Tamsulosin HCl [Flomax] 0.4 mg PO DAILY 02/06/18 02/06/18 Previous Rx's Medication Instructions Recorded cephALEXin [Keflex] 500 mg PO BID 7 Days #14 capsule 02/07/18 Allergies Allergy/AdvReac Type Severity Reaction Status Date / Time No Known Allergies Allergy Verified 02/06/18 09:20 All systems ED: reviewed and negative except as stated. Review of Systems: As Per HPI Past Medical History - Past Medical History Medical history: Reports: hypertension, kidney stones Surgical history: Reports: non-contributory Psychiatric history: Reports: no psych history - Social History Smoking Status: Never smoker Smokeless Tobacco Status: No Alcohol use: Reports: none Drug use: Reports: none Physical Exam Vital Signs Reviewed General: Patient is alert, oriented, and in in mild discomfort from his left flank pain. Head: atraumatic, normocephalic Eye: normal appearance, no scleral icterus, no conjunctival injection ENT: mucous membranes moist, normal external ear exam Neck: normal inspection, trachea midline, full ROM Chest: normal inspection, symmetric chest rise Respiratory: Good respiratory effort. Bilateral breath sounds are clear without wheezing, crackles, or rhonchi. Cardiovascular: Regular rate and rhythm. No clicks, rubs, gallops, or murmors. Normal heart sounds. Abdomen: Bowel sounds present normoactive. Abdomen is soft, nondistended. Left-sided flank pain and left CVA tenderness. No guarding or rebound. Musculoskeletal: Spontaneously moving all extremities. Skin: warm, dry, intact. Neuro: GCS 15. No focal neurologic deficits observed. Psych: Patient's affect is appropriate for situation. Course Course Narrative: Given the patient's history of obstructing nephrolithiasis, he is agreeable to CT abdomen and pelvis. We will also place IV, 1 L fluid bolus, nausea and pain control. Serum hematology is unremarkable. Serum chemistry is unremarkable. Patient's nausea and pain are well controlled. 17:45 Discussed the patient with on-call urology, Dr. Harrell. He agrees to see the patient on consultation with admission to the hospitalist. No further recommendations at this time. 18:05 Discussed the patient with admitting hospitalist, Dr. Weinstein. He agrees to accept the patient with urology following. Urology consult placed. Abdomen/Pelvis CT 05/18/18 04:56 IMPRESSION: 1. Multiple distal left ureteral calculi with obstructive uropathy. There is also a calculus in the left kidney. 2. Cholelithiasis without CT evidence for acute cholecystitis. 3. Diverticulosis without CT evidence for acute cholecystitis. 4. Coronary artery disease. D/ / Efrain Hilario MD / Efrain Hilario MD Interpreting Provider: Efrain Hilario MD Vital Signs Temperature 98.5 F 05/18/18 04:57 Pulse Rate 81 05/18/18 04:57 Respiratory Rate 18 05/18/18 04:57 Blood Pressure 184/116 05/18/18 04:57 O2 Sat by Pulse Oximetry 98 05/18/18 04:57 Temperature 98.5 F 05/18/18 04:57 Pulse Rate 81 05/18/18 04:57 Respiratory Rate 18 05/18/18 04:57 Blood Pressure 184/116 05/18/18 04:57 O2 Sat by Pulse Oximetry 98 05/18/18 04:57 Oxygen Delivery Oxygen Delivery Room Air Medical Decision Making - Lab Data Result diagrams: 05/18/18 05:22 05/18/18 05:22 Lab Results 05/18/18 Range/Units 05:22 WBC 9.2 (4.3-11.1) K/mcL RBC 4.92 (4.19-5.50) M/mcL Hgb 15.0 (12.9-16.9) g/dL Hct 42.8 (37.5-50.1) % MCV 87.0 (83.0-100.0) fL MCH 30.5 (28.0-33.3) pg MCHC 35.0 (31.6-35.5) g/dL RDW 12.4 (11.5-14.5) % Plt Count 217 (140-400) K/mcL MPV 9.4 (9.4-12.4) fL Immature Gran % 0.3 (0-4) % Seg Neutrophils % 75.3 % Lymphocytes % 12.9 % Monocytes % 9.4 % Eosinophils % 1.4 % Basophils % 0.7 % Neutrophils # 6.9 (1.6-8.9) K/mcL Lymphocytes # 1.2 (0.6-4.6) K/mcL Monocytes # 0.9 (0.0-1.3) K/mcL Eosinophils # 0.1 (0.0-0.6) K/mcL Basophils # 0.1 (0.0-0.2) K/mcL Attestation Statement - Attestation Attestation: Dr. Olivera note: Patient was seen in conjunction with resident Dr. Miguel. Please see his charting for complete documentation. Assessment [id number] time with the patient and agree with patient's treatment and disposition. Acute left flank pain since 1 AM. Similar to his last presentation for obstructive uropathy. Vital stable pain improved. Multiple stones and left ureter. Will require admission due to complexity of obstructive uropathy. All blood work and CT scans of been reviewed.
[2018-05-18] MEDS ORDERED: Ketorolac 15 MG/ML VIAL IVP ONE (04:56)
[2018-05-18] MEDS ORDERED: 0.9 % Sodium Chloride 1,000 ML IVC ONE (04:56)
[2018-05-18] MEDS ORDERED: Ondansetron 4 MG/2 ML VIAL IVP ONE (04:56)
[2018-05-18 05:39] LABS: Basophils # 0.1 K/mcL (0.0-0.2); Basophils % 0.7 %; Eosinophils # 0.1 K/mcL (0.0-0.6); Eosinophils % 1.4 %; Hematocrit 42.8 % (37.5-50.1); Immature Granulocytes % 0.3 % (0-4); Lymphocytes # 1.2 K/mcL (0.6-4.6); Lymphocytes % 12.9 %; Mean Corpuscular Hemoglobin 30.5 pg (28.0-33.3); Mean Platelet Volume 9.4 fL (9.4-12.4); Monocytes # 0.9 K/mcL (0.0-1.3); Monocytes % 9.4 %; Neutrophils # 6.9 K/mcL (1.6-8.9); Platelet Count 217 K/mcL (140-400); Red Blood Count 4.92 M/mcL (4.19-5.50); Red Cell Distribution Width 12.4 % (11.5-14.5); Segmented Neutrophils % 75.3 %
[2018-05-18] MEDS ORDERED: *HR* HYDROmorphone (PF) 1 MG/ML SYRINGE IVP ONE (05:49)
[2018-05-18] MEDS ORDERED: *HR* Labetalol 20 MG/4 ML SYRINGE IVP STA (06:01)
[2018-05-18 06:09] LABS: BUN/Creatinine Ratio 20 (6-26); Blood Urea Nitrogen 25 mg/dL (6-20); Carbon Dioxide 22 mEq/L (23-29); Chloride 107 mEq/L (98-107); Glucose 118 mg/dL (70-105); Osmolality,Calculated 289 (280-300); Potassium 4.1 mEq/L (3.5-5.1); Sodium 137 mEq/L (136-145); eGFR For Non-African Americans 59 (> 60)
[2018-05-18] MEDS ORDERED: Naloxone 0.4 MG/ML INJ IVP PRN ×2 (07:47→16:30)
[2018-05-18] MEDS ORDERED: *HR* Promethazine 25 MG/ML VIAL IVP PRN ×3 (07:47→16:30)
[2018-05-18] MEDS ORDERED: Ketorolac 15 MG/ML VIAL IVP PRN ×2 (07:47→16:30)
--- NOTE | 2018-05-18 08:25 | Urology - Consult Note ---
Addendum entered and electronically signed by Ezra Harrell MD 05/18/18 09:26: The patient was seen and examined with the physician's language assistant. I agree with the assessment and plan. Patient has 2 distal left ureteral stones as well as a left renal stone. I recommend proceeding with a left ureteroscopy, laser lithotripsy, and stent placement. He was informed of the risks of the procedure including but not limited to bleeding, infection, injury to other structures, need for further procedures, stent irritation, incomplete fragmentation, ureteral perforation, need for nephrostomy tube, need for open repair, risks unforeseen, and the risk of anesthesia. He is willing to proceed. Original Note: Date of Encounter: 05/18/18 Time of Encounter: 07:45 - Assessment and Plan (1) Hydronephrosis Current Visit: Yes Status: Acute Qualifiers: Hydronephrosis type: with ureteral calculous obstruction Qualified Code(s): N13.2 - Hydronephrosis with renal and ureteral calculous obstruction (2) Hydroureter Current Visit: Yes Status: Acute (3) Left ureteral calculus Current Visit: Yes Status: Acute Assessment and plan: Patient is a 57-year-old male who presents with multiple distal left ureteral calculi and left renal stone. Patient was admitted for pain control, and he does wish to undergo definitive stone extraction procedure. Discussed surgical risks and benefits including bleeding, infection, scarring, stricture, damage to kidneys or bladder, anesthesia risks, deep vein thrombosis, failure to definitively extract stone in one procedure. Patient and his verbalized un derstanding, and consent has been signed. Patient is prepared to undergo a left ureteroscopic stone extraction with holmium laser lithotripsy, basket retrieval, cystoscopy, and ureteral stent placement. Patient will remain nothing by mouth and be added on for surgery later this afternoon. Urology CN:HPI Consult date: 05/18/18 Reason for consult Urology: Other (left ureteral calculi) History of present illness: Patient is a 57-year-old male who presents with multiple left distal ureteral calculi. Patient presented to the emergency department early this morning with complaints of left flank pain and nausea. Patient was hospitalized approximately 3 months ago when he underwent ureteroscopic stone extraction and ureteral stent placement with Dr. Neely. Patient has a long-standing history of renal stones and has undergone multiple stone extraction procedures in the past, including ESWL and ureteroscopy. Patient has a significant family history through his brothers for renal stones. Currently, patient denies fever, chills, gross hematuria, urinary frequency, urgency, hesitancy. Patient has undergone CT of the abdomen and pelvis revealing multiple left distal ureteral calculi and a left ureteral stone with mild hydronephrosis. Past Med Surg Social Fam HX - Past Medical History Medical history: hypertension, kidney stones Psychiatric history: no psych history - Past Surgical History Surgical History: non-contributory Additional surgical history: left knee reconstruction - Social History Smoking Status: Never smoker Smokeless Tobacco Status: No Alcohol use: none Drug use: none - Family History Father Living Status: Hx Family Cardiac Disorders: Yes (open heart surgeries brothers) Hx Family Respiratory Disorders: No Hx Family Cancer: Yes (lung cancer) Hx Family GI Disorders: No Hx Family Endocrine Disorder: No Hx Family Neuromuscular Disorders: No Hx Family Neurologic Disorders: No Hx Family HEENT Disorders: No Hx Family Autoimmune Disorders: No Medications and Allergies HYDROcodone/Acet 10/325 mg [[place] 10-325 mg] 1 tab PO Q4HR PRN 02/06/18 [History] Loratadine [Allergy Relief] 10 mg PO DAILY 02/06/18 [History] Losartan [Cozaar] 50 mg PO DAILY 02/06/18 [History] SUMAtriptan Succinate [Imitrex] 100 mg PO Q2H PRN 02/06/18 [History] Tamsulosin HCl [Flomax] 0.4 mg PO DAILY 02/06/18 [History] cephALEXin [Keflex] 500 mg PO BID 7 Days #14 capsule 02/07/18 [Rx] Allergy/AdvReac Type Severity Reaction Status Date / Time No Known Allergies Allergy Verified 02/06/18 09:20 Review of Systems - Constitutional no chills, no fatigue, no fever(s) - EENT Nose, mouth and throat: no dizziness, no headache(s) - Cardiovascular no chest pain, no diaphoresis, no dyspnea - Respiratory no cough, no dyspnea - Gastrointestinal abdominal pain, nausea, no vomiting - Genitourinary flank pain, no change in urinary stream, no difficulty urinating, no dysuria, no hematuria, no urinary frequency, no urinary hesitancy, no urinary incontinence, no urinary urgency - Musculoskeletal no back pain, no muscle weakness - Integumentary no erythema, no rash - Neurological no confusion, no sensory deficit - Psychiatric no anxiety, no confusion - Hematologic/Lymphatic no easy bleeding, no easy bruising - Allergic/Immunologic no throat swelling, no wheezing Exam Initial Vital Signs Temp Pulse Resp BP Pulse Ox 98.5 F 81 18 184/116 98 05/18/18 04:57 05/18/18 04:57 05/18/18 04:57 05/18/18 04:57 05/18/18 04:57 - General physical appearance Present: well developed, no distress, moderate pain - Eyes Present: PERRL, normal ocular movement - ENT Present: normal nares, no hearing loss, no congestion - Neck Present: no masses, trachea midline - Respiratory Present: normal respiratory effort - Cardiovascular Cardiovascular exam IM: RRR - Abdomen Abdomen: Present: soft, tender (left CVAT) - Integumentary Present: no rash, no abnormal pigmentation - Neurologic Present: normal coordination - Musculoskeletal Present: other (normal posture ) Urology Results - Labs 05/18/18 05:22 05/18/18 05:22 Abnormal lab results Carbon Dioxide 22 mEq/L (23-29) L 05/18/18 05:22 BUN 25 mg/dL (6-20) H 05/18/18 05:22 Est GFR (Non-Af Amer) 59 (> 60) L 05/18/18 05:22 Glucose 118 mg/dL (70-105) H 05/18/18 05:22 Diabetes panel 05/18/18 Range/Units 05:22 Sodium 137 (136-145) mEq/L Potassium 4.1 (3.5-5.1) mEq/L Chloride 107 (98-107) mEq/L Carbon Dioxide 22 L (23-29) mEq/L BUN 25 H (6-20) mg/dL Creatinine 1.27 (0.70-1.30) mg/dL Glucose 118 H (70-105) mg/dL Calcium 9.0 (8.6-10.3) mg/dL Calcium panel 05/18/18 Range/Units 05:22 Calcium 9.0 (8.6-10.3) mg/dL Pituitary panel 05/18/18 Range/Units 05:22 Sodium 137 (136-145) mEq/L Potassium 4.1 (3.5-5.1) mEq/L Chloride 107 (98-107) mEq/L Carbon Dioxide 22 L (23-29) mEq/L BUN 25 H (6-20) mg/dL Creatinine 1.27 (0.70-1.30) mg/dL Glucose 118 H (70-105) mg/dL Calcium 9.0 (8.6-10.3) mg/dL Adrenal panel 05/18/18 Range/Units 05:22 Sodium 137 (136-145) mEq/L Potassium 4.1 (3.5-5.1) mEq/L Chloride 107 (98-107) mEq/L Carbon Dioxide 22 L (23-29) mEq/L BUN 25 H (6-20) mg/dL Creatinine 1.27 (0.70-1.30) mg/dL Glucose 118 H (70-105) mg/dL Calcium 9.0 (8.6-10.3) mg/dL All other labs normal. - Imaging CT scan - abdomen: report reviewed, image reviewed CT scan - pelvis: report reviewed, image reviewed Consult Discharge Plan - Plan
[2018-05-18] MEDS: Ringers Solution, Lactated 1,000 ML IVC SCH ×2 (08:43→16:33)
--- NOTE | 2018-05-18 09:39 | Internal Med History&Physical ---
Date of Encounter: 05/18/18 Time of Encounter: 08:15 Internal Medicine - H&P: HPI Chief complaint: Left Sided flank pain, nausea Admitted From: Emergency Dept Plans for Post Hospital Care: Home History of present illness: Mr. Lu is a 57 year old male Patient with a history of hypertension and nephrolithiasis with prior stenting presented to the ER with complaints of left- sided flank pain that began early this morning. Associated with nausea. Pain was radiating down into his groin. He denies any hematuria. No fevers or chills. His last episode of kidney stone was in January of this year. At that time he underwent stenting and stone extraction. Past Med Surg Social Fam HX - Past Medical History Attestation: Yes The following information was validated with the patient. Source: patient Medical history: hypertension, kidney stones Psychiatric history: no psych history - Past Surgical History Surgical History: non-contributory Additional surgical history: left knee reconstruction - Social History Smoking Status: Never smoker Smokeless Tobacco Status: No Alcohol use: none Drug use: none - Family History Father Living Status: Hx Family Cardiac Disorders: Yes (open heart surgeries brothers) Hx Family Respiratory Disorders: No Hx Family Cancer: Yes (lung cancer) Hx Family GI Disorders: No Hx Family Endocrine Disorder: No Hx Family Neuromuscular Disorders: No Hx Family Neurologic Disorders: No Hx Family HEENT Disorders: No Hx Family Autoimmune Disorders: No Internal Medicine - H&P: Meds HYDROcodone/Acet 10/325 mg [[place] 10-325 mg] 1 tab PO Q4HR PRN 02/06/18 [History] Loratadine [Allergy Relief] 10 mg PO DAILY 02/06/18 [History] Losartan [Cozaar] 50 mg PO DAILY 02/06/18 [History] SUMAtriptan Succinate [Imitrex] 100 mg PO Q2H PRN 02/06/18 [History] Tamsulosin HCl [Flomax] 0.4 mg PO DAILY 02/06/18 [History] cephALEXin [Keflex] 500 mg PO BID 7 Days #14 capsule 02/07/18 [Rx] Allergy/AdvReac Type Severity Reaction Status Date / Time No Known Allergies Allergy Verified 02/06/18 09:20 All Systems PM: A 10-system review of systems was performed and is negative for pertinent fi ndings except as documented above in the HPI. - Constitutional Constitutional: no chills, no fever(s), no night sweats - EENT Eyes: no change in vision, no discharge, no pain, no photophobia Ears: no ear discharge, no ear pain, no tinnitus Nose, mouth and throat: no dysphagia, no nasal discharge, no neck pain, no sore throat - Cardiovascular Cardiovascular ROS IM: no chest pain, no diaphoresis, no dyspnea, no lightheadedness, no palpitations, no syncope - Respiratory Respiratory: no cough, no dyspnea, no wheezing, no excessive phlegm production - Gastrointestinal Gastrointestinal: nausea, no abdominal pain, no diarrhea, no hematemesis, no hematochezia, no melena, no vomiting - Genitourinary Genitourinary ROS male: flank pain - Musculoskeletal Musculoskeletal ROS IM: no numbness, no tingling - Integumentary Integumentary IM: no rash, no unusual bruising - Neurological Neurological ROS: no confusion, no convulsions, no focal weakness, no numbness, no tingling, no tremor(s) - Hematologic/Lymphatic Hematologic/Lymphatic: no easy bruising - Constitutional Vitals: Temp Pulse Resp BP Pulse Ox 98.5 F 75 18 144/103 100 05/18/18 04:57 05/18/18 06:22 05/18/18 06:22 05/18/18 06:22 05/18/18 06:22 General appearance: Present: cooperative, mild distress, A&O X 3, answers questions appropriately Exam: General: Patient is alert, no acute distress, oriented x 3 Chest: normal inspection, symmetric chest rise Respiratory: Good respiratory effort. Normal breath sounds. No wheezing or crackles. Cardiovascular: Regular rate and rhythm. s1 and s2 normal No clicks, rubs, gallops, or murmurs. No pedal edema Abdomen: Abdomen is soft, no CVA tenderness appreciable. Bowel sounds are present Musculoskeletal: Spontaneously moving all extremities Skin: warm, dry, intact. Neuro: Alert oriented x 3 normal cranial nerves, no focal deficits Internal Med - H&P Results - Labs CBC & Chem 7: 05/18/18 05:22 05/18/18 05:22 Labs: Short CBC 05/18/18 Range/Units 05:22 WBC 9.2 (4.3-11.1) K/mcL Hgb 15.0 (12.9-16.9) g/dL Hct 42.8 (37.5-50.1) % Plt Count 217 (140-400) K/mcL Neutrophils # 6.9 (1.6-8.9) K/mcL BMP 05/18/18 05:22 Sodium 137 Potassium 4.1 Chloride 107 Carbon Dioxide 22 L BUN 25 H Creatinine 1.27 Glucose 118 H Calcium 9.0 - Impressions ITS Impressions Abdomen/Pelvis CT 05/18/18 04:56 IMPRESSION: 1. Multiple distal left ureteral calculi with obstructive uropathy. There is also a calculus in the left kidney. 2. Cholelithiasis without CT evidence for acute cholecystitis. 3. Diverticulosis without CT evidence for acute cholecystitis. 4. Coronary artery disease. D/ / Efrain Hilario MD / Efrain Hilario MD Interpreting Provider: Efrain Hilario MD - Assessment and plan (1) Left ureteral calculus Current Visit: Yes Status: Acute Assessment and plan: Patient has multiple left distal ureteral calculi with obstructive uropathy. Creatinine is 1.27 currently. Will treat with IV fluids. Pain control. Antiemetics as needed. Consult to urology. Appreciate recommendations. Plan for ureteroscopic laser lithotripsy and stent placement Later today. Keep nothing by mouth. (2) DVT prophylaxis Current Visit: Yes Status: Acute Assessment and plan: With SCDs (3) HTN (hypertension) Current Visit: Yes Status: Chronic Assessment and plan: Uncontrolled. Due to pain. Will place patient on IV hydralazine as needed as patient is nothing by mouth. Qualifiers: Hypertension type: essential hypertension Qualified Code(s): I10 - Es sential (primary) hypertension - Time Spent With Patient Total time spent is greater than 50% in coordination of care (as documented) at patient's floor/unit and/or counseling patient:
[2018-05-18] MEDS ORDERED: *HR* Midazolam HCl 2 MG/2 ML VIAL ONE (14:02)
[2018-05-18] MEDS ORDERED: *HR* FentaNYL (PF) 100 MCG/2 ML VIAL ONE (14:02)
[2018-05-18] MEDS ORDERED: *HR* Propofol 200 MG/20 ML VIAL IVP ONE (14:02)
[2018-05-18] MEDS ORDERED: Ondansetron 4 MG/2 ML VIAL ONE (14:12)
[2018-05-18] MEDS ORDERED: Dexamethasone 4 MG/ML VIAL ONE (14:12)
[2018-05-18] MEDS ORDERED: Lidocaine -MPF 2% 2 ML VIAL ONE (14:12)
--- NOTE | 2018-05-18 14:39 | Anesthesia Evaluation PreOp ---
Date of Encounter: 05/18/18 Time of Encounter: 14:40 - Past History Planned Operation: Left USE Laser Stent Cardiac History: HTN, Hyperlipidemia Pulmonary History: Denies Any Significant HX MEAT STUFFER History: Denies Any Significant HX Other Medical History: Denies Any Significant HX Anesthesia History: No Prior Anesthetic Complications Alcohol Use: none Drug use: none Medications and Allergies HYDROcodone/Acet 10/325 mg [[place] 10-325 mg] 1 tab PO Q4HR PRN 02/06/18 [History] Loratadine [Allergy Relief] 10 mg PO DAILY 02/06/18 [History] Losartan [Cozaar] 50 mg PO DAILY 02/06/18 [History] SUMAtriptan Succinate [Imitrex] 100 mg PO Q2H PRN 02/06/18 [History] Tamsulosin HCl [Flomax] 0.4 mg PO DAILY 02/06/18 [History] cephALEXin [Keflex] 500 mg PO BID 7 Days #14 capsule 02/07/18 [Rx] Allergy/AdvReac Type Severity Reaction Status Date / Time No Known Allergies Allergy Verified 02/06/18 09:20 - Meds/Allergy Pre-op Review Medications Reviewed: Yes Allergies Reviewed: Yes Beta Blockers on Current Med List: No Anesthesia Results - Labs 05/18/18 05:22 05/18/18 05:22 Anesthesia Exam O2 Sat Height 1.7 m Height 1.7 m Weight 81.647 kg Weight 81.647 kg O2 Sat by Pulse Oximetry 98 O2 Sat by Pulse Oximetry 100 O2 Sat by Pulse Oximetry 98 Vital Signs Temp Pulse Resp BP Pulse Ox 98.5 F 81 18 184/116 98 05/18/18 04:57 05/18/18 04:57 05/18/18 04:57 05/18/18 04:57 05/18/18 04:57 Height: 5'7 Weight: 180 lbs NPO (# of Hours): MN Pain Scale: 0 - HEENT Pupil (Motor): Pupils equal, EOMI Mallampati: II Teeth: Normal Oral Opening: Greater than 3 - MEAT STUFFER LOC: Oriented MEAT STUFFER Motor: Normal RUE, Normal LUE, Normal RLE, Normal LLE, Normal Face MEAT STUFFER Sensory: Normal: RUE, LUE, RLE, LLE, Face - Cardiac Rhythm: Regular Murmur: None JVD: No Carotid Bruit: No - Pulmonary Breath Sounds: bilateral Clear Respiratory Effort: Symmetrical Anesthesia Assess/Plan ASA Score: 2 Level of consciousness: Cooperative, Oriented Anesthetic Plan: General Autologous Blood: No Monitoring Plan: Standard Monitors Recovery Plan: PACU (Discussed GA, agrees to proceed)
[2018-05-18] MEDS ORDERED: Famotidine 20 MG/2 ML VIAL ONE (14:41)
[2018-05-18] MEDS ORDERED: Acetaminophen IV 1,000 MG/100 ML INFUS..BTL ONE (14:41)
[2018-05-18] MEDS ORDERED: EPHEDrine 50 MG/ML VIAL ONE (15:22)
[2018-05-18] MEDS ORDERED: *HR* OxyCODONE Immed Rel 5 MG TABLET PO PRN (15:32)
[2018-05-18] MEDS ORDERED: *HR* HYDROmorphone (PF) 1 MG/ML SYRINGE IVP PRN (15:32)
--- NOTE | 2018-05-18 15:44 | Operative Note ---
Date of procedure: 05/18/18 Pre-op diagnosis: Left ureteral stone Post-op diagnosis: same Procedure: Distal left ureteroscopy, laser lithotripsy, basket stone extraction, and stent placement. Staged left proximal ureteroscopy and basket stone extraction Implants: 4.8-[place] by 26 cm double-J stent Complications: None Anesthesia: GETA Surgeon: Ezra Harrell Was there an industrial hire sales assistant present: No Estimated blood loss (cc): 1 Specimen: left ureteral stone Condition: stable Disposition: PACU Procedure in Detail: Indications: Mr. Lu is a 57-year-old gentleman who has a history of left flank pain. A CT scan showed two stones in the distal left ureter. He also had a stone in the left kidney. He elected to undergo a left distal ureteroscopy, laser lithotripsy, and stent placement with a staged left proximal ureteroscopy and stone extraction. He is aware of the risks of the procedure including but not limited to bleeding, infection, injury to other structures, need for further procedures, stent irritation, and the risk of anesthesia. He is willing to proceed. Procedure: After informed consent was obtained the patient was brought back to the operating room and placed in supine position. A time out was performed. General anesthesia was administered and an LMA was placed. He was then placed in the lithotomy position. He was prepped and draped in the usual sterile fashion. Cystoscopy was performed. The anterior urethra was normal. There was no evidence of bladder tumors. The ureteral orifices were in the normal orthotopic position. The Zip wire was placed in the left ureteral orifice and brought into the kidney under fluoroscopic guidance. The ureter was gently dilated with the 8/10 [place]ian ureteral dilator. I then advanced the semirigid ureteroscope into the ureter. The stone was fragmented using the 200 micron laser fiber into small pieces. The stone fragments were basket extracted. A sensor wire was placed up the ureter and the scope was removed. I placed the flexible ureteroscope into the kidney. 2 stones were seen in the lower pole calyx. These were basket extracted. The kidney was surveyed with the ureteroscope. No other stones were noted in all the calyces. The scope was the n removed. A 4.8French by 26cm JJ stent was then placed with good curl seen in the kidney and the bladder. The dangle string was left intact. The bladder was drained. The string was adhered to the penis using a Tegaderm. The patient was then awakened from general anesthesia and brought to recovery room in good condition. All sponge, needle, and instrument counts were correct.
--- NOTE | 2018-05-18 16:12 | Anesthesia Evaluation Post Op ---
Date of Encounter: 05/18/18 Time of Encounter: 16:15 - Vital Signs Vital Signs: Vital Signs/O2 Sat/Glucose, Most Current Temp Pulse Resp BP Pulse Ox 05/18/18 15:59 84 18 119/79 99 05/18/18 15:49 79 18 109/77 94 05/18/18 15:39 98.4 F 75 16 104/66 95 - Lungs Lungs: Clear Ascult./Percussion - Airway Airway: Non-obstructed - Cardiovascular Regular Rate - Mental Status Mental Status: Alert & Oriented, Answers Appropriately - Pain Pain Scale: 0 - Nausea Vomiting Nausea Vomiting: Not Present - Hydration Hydration: Ice chips - Discharge PostOp Status: Transfer Patient to floor
[2018-05-18] MEDS ORDERED: Ringers Solution, Lactated 1,000 ML IVC SCH (16:30)
--- NOTE | 2018-05-18 18:28 | Discharge Summary ---
- NOTES TO OUTPATIENT PROVIDER Notes to Outpatient Provider: Patient hospitalized with left-sided flank pain. Diagnosed with left ureteral calculus for which he underwent surgery with retrieval of stone. Stent placed. He will follow up with urology after discharge. He may remove stent per urology recommendations. Orders not resulted at time of discharge: Pending orders 05/19/18 04:00 Basic Metabolic Panel AM 0400 Complete Blood Count [HEME] AM 0400 Date of Encounter: 05/18/18 Time of Encounter: 18:25 - Discharge Diagnosis (1) Left ureteral calculus Priority: Primary Status: Acute (2) HTN (hypertension) Priority: Secondary Status: Chronic Qualifiers: Hypertension type: essential hypertension Qualified Code(s): I10 - Essential (primary) hypertension (3) DVT prophylaxis Priority: Secondary Status: Acute Hospital course: Mr. Lu is a 57 year old male Patient with history of nephrolithiasis, hypertension was hospitalized with left-sided flank pain. Diagnosed with left ureteral calculus for which he underwent ureteroscopic surgery with retrieval of stone. Stent placed. He will follow up with urology after discharge. He may remove stent per urology recommendations. No indication for antibiotics per urology. Discharge discussed with: patient, nurse, image consultant - Time Spent with Patient Total time spent providing and/or coordinating discharge services: Less than 30 minutes (10 min) - Discharge Medications Home Medications: HYDROcodone/Acet 10/325 mg [Palisade 10-325 mg] 1 tab PO Q4HR PRN 02/06/18 [History] Loratadine [Allergy Relief] 10 mg PO DAILY 02/06/18 [History] Losartan [Cozaar] 50 mg PO DAILY 02/06/18 [History] SUMAtriptan Succinate [Imitrex] 100 mg PO Q2H PRN 02/06/18 [History] Tamsulosin HCl [Flomax] 0.4 mg PO DAILY 02/06/18 [History] Allergies/Adverse Reactions: Allergy/AdvReac Type Severity Reaction Status Date / Time No Known Allergies Allergy Verified 02/06/18 09:20 Date of admission: 05/18/18 06:05 Primary care physician: Norah Gardner CNP Consults: 05/18/18 05:49 Consult to Urology [CONS] Stat Consulting Provider: Urology Celeste Reason for Consult: Left obstructing stone w/hydronephrosis & perinephric stranding Time Notified: 05:49 Call Completed: Yes Discharging clinician: Chris Ho Anticipated date of discharge: 05/18/18 - Constitutional Vitals: Temp Pulse Resp BP Pulse Ox 97.6 F 77 16 122/81 97 05/18/18 16:40 05/18/18 16:40 05/18/18 16:40 05/18/18 16:40 05/18/18 16:40 General appearance: Present: cooperative, A&O X 3, pleasant, answers questions appropriately Exam: . - Respiratory Respiratory exam: Present: CTAB. Absent: accessory muscle use, rales, rhonchi, wheezes - Cardiovascular Cardiovascular exam: Present: RRR, +S1, +S2. Absent: diastolic murmur, gallop, rubs, systolic murmur - Patient Status Disposition: Home, Self-Care Condition: Good Functional capacity at discharge: independent ambulation Overall status at discharge: patient is progressing back to baseline - Discharge Instructions Instructions: Ureteral Stent Placement (DC) Follow Up With: Norah Gardner CNP [Primary Care Provider] - (in 1-2 weeks) Ezra Harrell MD [Partnered Physician] - Forms: ED Satisfaction Letter, Work/School Release - Diet and Activity Activity: increase activity as tolerated Diet: advance to your usual diet, low fat, low cholesterol, low salt diet
[2018-05-18 18:32] VITALS: BP 123/81
== END 2018-05-18 19:25 | disposition home or self-care (01) ==
LOC: EMEROOARM 04:36 → 3ANU 04:36
PROVIDERS: ADMIT Family Medicine; ATTEND Family Medicine